=== PATIENT | male | born 1955 | race Caucasian/White ===

== ENCOUNTER 2017-04-02 10:36 | Emergency (ER) | payer OTHER ==
[~2017-04-02] VITALS: Ht 182.9 cm; Wt 59.0 kg
--- NOTE | ~2017-04-02 | EKG ---
[address] [address] ELECTROCARDIOGRAM REPORT Name: PALMIRA VARGAS ROBERTO CARLOS [facility] [id number] Admission: 04/02/17 Attend Phys: Discharge: 04/02/17 Date of : 59 Report #: [id number] THIS REPORT FOR: //name// [facility] ED Test Date: 2017-04-02 Test Time: 10:49:25 Pat Name: PALMIRA VARGAS Department: Room: Gender: Health Plan Manager: BIANKA : 1955 Requested By: Indu Tobar Order Number: [id number] MD: Jesus Henderson Measurements Intervals [place] Rate: 59 P: 68 NJ: 217 QRS: 32 QRSD: 85 T: 73 QT: 405 QTc: 402 Interpretive Statements Sinus rhythm Prolonged NJ interval No previous ECG available for comparison Electronically Signed On 04-03-2017 7:57:13 CDT by Jesus Henderson [email or web address] <ELECTRONICALLY SIGNED> By: Jesus Henderson MD, [facility] 04/03/17 0757 1049 1049 Jesus Henderson MD, FACC /EPI
[~2017-04-02 10:36] MED LIST: ACCUNEB SO1.25 MG/1 MISCELL; ALBUTEROL2.5 MG/0.5 INH; ALLERGY MEDICAT25 MG PO; ALLOPURINOL 10100 M1 PO; AMBIEN 5 MG TABL5 M1 PO; AMBIEN5 MG PO; ATIVAN0.5 MG PO; ATIVAN1 MG PO; BACTRIM DS TAB1 EACH PO; BENADRYL25 MG PO; CARDIZEM CD120 MG PO; CARDIZEM CD180 MG PO; CENTRUM SILVER1 EAC4 PO; CIPROFLOXACIN500 M1 PO; COLACE100 MG PO; CORDARONE200 MG PO; DIPHENHYDRAMINE25 M3 PO; DULCOLAX5 MG PO; DUONEB 2.5-0.5 M3 ML INH; FEVERALL650 MG RECTAL; FLEXERIL PO; FLOMAX0.4 MG PO; FLORANEX TABLE1 EACH PO; FOLIC ACID1 MG PO; GABAPENTIN 100100 MG PO; HYDROCODON-ACE1 EAC7 PO; HYDROCODON-ACE1 EACH PO; HYDROCODONE-AP1 EAC6 PO; HYDROXYZINE HCL25 M1 PO; K-PHOS #2 TABL1 EACH PO; LEVAQUIN 500 M500 M2 PO; LEVAQUIN 500 M500 M4 PO; LEVOTHYROXIN0.112 M1 PO; LOPRESSOR 12.12.5 MG PO; LOPRESSOR25 PO; MAG-AL PLUS SUS30 ML PO; MAGOX 400400 MG PO; MEDROLDOSEPACK PO; MEGESTROL400 MG/12; MELATONIN3 MG PO; MILK OF MA400 MG/5 M PO; MINOCIN100 MG PO; MIRALAX17 GM PO; MOBIC7.5 MG; NEBULIZER MISCELL; NORCO 5-325 TA1 EACH PO; NORVASC 5 MG TAB5 MG PO; NYSTATIN 1100000 U/M PO; ONDANSETRON HCL4 M2 IV PUSH; ONDANSETRON HCL4 M2 PO; PAXIL10 MG; PAXIL10 MG PO; PERCOCET 5-3251 EACH PO; PERCOCET PO; PHENERGAN 25 MG25 M1 IV PUSH; PHENERGAN 25 MG25 M1 PO; PREDNISONE 10 M10 MG PO; PREDNISONE 20 M20 MG PO; PREDNISONE10 MG PO; PROTONIX40 M1 PO; REMERON15 MG; SALINE NASAL SP30 ML NASAL; THERAGRAN-M PR1 EAC1 PO; THIAMINE HCL100 MG PO; TRAMADOL 50 MG50 MG PO; TRINATE TABLET1 TAB PO; TYLENOL325 MG PO; ULTRAM50 MG PO; UNICOMPLEX M TA1 TA1 PO; VANCOMYCIN HCL1 GM IV; VITAMIN B-1100 M1 PO
[2017-04-02] MEDS ORDERED: ALLOPURINOL 10100 M1 PO (10:42)
[2017-04-02] MEDS ORDERED: ASPIR 8181 MG PO (10:42)
[2017-04-02] MEDS ORDERED: FLONASE 0.05%50 MCG NASAL (10:42)
[2017-04-02] MEDS ORDERED: CELEXA20 MG PO (10:42)
[2017-04-02] MEDS ORDERED: MELATONIN5 M1 PO (10:43)
[2017-04-02] MEDS ORDERED: ZANTAC 150MG T150 MG PO (10:44)
[2017-04-02] MEDS ORDERED: HYDROXYZINE HCL50 MG PO (10:44)
[2017-04-02] MEDS ORDERED: FLOMAX0.4 MG PO (10:44)
[2017-04-02] MEDS ORDERED: PROAIR HFA8.5 GM INH (10:45)
[2017-04-02] MEDS ORDERED: SYMBICORT160 MCG/4. INH (10:46)
[2017-04-02] MEDS ORDERED: TRAMADOL 50 MG50 MG PO (10:46)
[2017-04-02 11:14] LABS: ABSOLUTE NEUTROPHILS 2.4 thou/uL (1.4-8.2); BASOPHILS 0.9 % (0.0-2.0); EOSINOPHILS 11.2 % (0.0-3.0); HEMATOCRIT 36.4 % (42.0-52.0); HEMOGLOBIN 12.2 gm/dL (14.0-18.0); LYMPHOCYTES 34.9 % (24.0-44.0); MCH 30.6 pg (26.0-34.0); MCHC 33.7 g/dL (28.0-37.0); MCV 90.9 fL (80.0-100.0); MONOCYTES 8.8 % (1.0-8.0); PLATELET COUNT 210 thou/uL (150-400); POLYS 44.2 % (36.0-66.0); RDW 15.3 % (10.5-14.5); WBC 5.5 thou/uL (4.0-11.0)
[2017-04-02 11:19] LABS: MANUAL DIFF NO
[2017-04-02] MEDS ORDERED: METOPROLOL TART25 MG PO (11:22)
[2017-04-02] MEDS ORDERED: OMEPRAZOLE 20 M20 M1 PO (11:23)
[2017-04-02] MEDS ORDERED: MAGOX 400400 MG PO (11:23)
[2017-04-02] MEDS ORDERED: LEVOTHYROXINE 0.15MG PO (11:23)
[2017-04-02] MEDS ORDERED: PERCOCET PO (11:24)
[2017-04-02 11:28] LABS: ANION GAP 4 mmol/L (7-16); BUN 14 mg/dL (7-18); CALCIUM 9.3 mg/dL (8.5-10.1); CHLORIDE 101 mmol/L (98-107); CO2 30 mmol/L (21-32); CREATININE 0.8 mg/dL (0.7-1.3); GLUCOSE 81 mg/dL (74-106); POTASSIUM 4.7 mmol/L (3.5-5.1); SODIUM 135 mmol/L (136-145)
[2017-04-02 11:33] LABS: ALBUMIN 3.4 g/dL (3.4-5.0); ALKALINE PHOSPHATASE 89 U/L (46-116); SGOT 13 U/L (15-37); SGPT 14 U/L (30-65); TOTAL BILIRUBIN 0.4 mg/dL (<0.1-1.0); TOTAL PROTEIN 7.5 g/dL (6.4-8.2); TROPONIN-I < 0.04 ng/mL (<0.04-0.07)
[2017-04-02 12:42] LABS: URINE BILIRUBIN NEGATIVE (Negative); URINE BLOOD NEGATIVE (Negative); URINE COLOR YELLOW; URINE GLUCOSE-RANDOM* NEGATIVE (Negative); URINE KETONES NEGATIVE (Negative); URINE NITRITE NEGATIVE (Negative); URINE PROTEIN (DIPSTICK) NEGATIVE (Negative); URINE UROBILINOGEN 0.2 E.U./dl (0.2-1.0)
== END 2017-04-02 13:08 | disposition home or self-care (01) ==
LOC: ER 10:36
PROVIDERS: Physician Assistant
DX: I95.1 Orthostatic hypotension (principal); R55 Syncope and collapse; J44.9 Chronic obstructive pulmonary disease, unspecified; I48.91 Unspecified atrial fibrillation; F41.9 Anxiety disorder, unspecified; I10 Essential (primary) hypertension; F17.210 Nicotine dependence, cigarettes, uncomplicated; Z86.14 Personal history of Methicillin resistant Staphylococcus aureus infection; Z88.0 Allergy status to penicillin

== ENCOUNTER 2017-06-22 16:19 | Inpatient (IN) | payer OTHER ==
[~2017-06-22] VITALS: Ht 182.9 cm; Wt 55.1 kg
--- NOTE | ~2017-06-22 | HC ---
[facility] [place] [address] CONSULTATION Name: PALMIRA VARGAS ROBERTO CARLOS Room #: 438-P [facility] IN M.R.#: [id number] Admission: 06/22/17 Attend Phys: Jason Groves Discharge: 06/25/17 Date of : 59 Report #: [id number] THIS REPORT FOR: //name// CC: Sixto Zayas MD DATE OF SERVICE: 06/23/2017 REASON FOR CONSULTATION: The patient is a 62-year-old male with chronic obstructive pulmonary disease, generalized weakness and weight loss. HISTORY OF PRESENT ILLNESS: The patient has a history of chronic obstructive pulmonary disease and has had respiratory failure with worsening shortness of breath. He had been in a long-term care center. He presented to [facility] [place] [place] with complaints of generalized weakness and shortness of breath. He reported he does have productive cough, fever and chills. He was admitted through the Emergency Room. He also reported he has lost about 40 pounds in the past 4 months or so. He was brought to [facility] ER from a nursing facility. LABORATORY STUDIES: Revealed unremarkable electrolytes, creatinine was 0.7, BUN of 11. AST and ALT were low, total bilirubin is 0.5. Alkaline phosphatase 107, albumin is 3.4 initially with hydration 1-3.3, lactic acid is 1.6. Alcohol is less than 10. Iron studies show low serum iron, low TIBC, low saturations. Hemoglobin is 12.3, white count of 5.3, MCV of 91, platelet count of 182,000. TSH is less than 0.007. Cortisol is pending. Blood cultures are pending. The patient also has chronic pain for which he takes narcotics. He had taken tramadol, but it did not work well, so he says he has gone back to [facility]. He usually takes about 4 per day. As far as his weight loss, he reports that his appetite has not been all that great. Up until recently, his taste sensation was very poor. He does have some nausea. He does feel full at times. He reports his bowel habits are regular. He has not had any rectal bleeding. He has had colonoscopies in the past at [place] and had colon polyps and was advised return in 3 years for followup. He says an upper endoscopy was attempted in the past, but apparently with some bleeding issue and it was altered. He does not recall he was told he had esophageal varices. The patient does have a history of alcohol abuse in the past. 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 He did this for 30 some years. Notes indicated there was some alcohol bottles in his room and he does admit he drank about a week ago when he went out in the past to [facility] [place] [place] [address] [place] [address] CONSULTATION Name: PALMIRA VARGAS ROBERTO CARLOS Room #: 438-P DIS IN M.R.#: [id number] Admission: 06/22/17 Attend Phys: Jason Groves Discharge: 06/25/17 Date of : 59 Report #: [id number] dinner with some friends. PAST MEDICAL HISTORY: Urinary tract infections, history of MRSA, COPD, atrial fibrillation, hypothyroidism, anxiety, history of pneumonia, high blood pressure, orthostatic hypotension. PAST SURGICAL HISTORY: Eye surgery, mastectomy. MEDICATIONS: Usual medicines, acetaminophen, albuterol, Zyloprim, ammonium lactate topically, aspirin, Symbicort, Celexa, Cardizem, Proscar, folic acid, gabapentin, hydroxyzine, levothyroxine, magnesium oxide, melatonin, metoprolol, multivitamin, nebulizer, omeprazole, Percocet, Rapaflo, thiamine, tramadol, Zolpidem. FAMILY HISTORY: No family history of colon cancer or ulcer disease. 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 REVIEW OF SYSTEMS: GENERAL: He reports he had some fever and chills, and he has been afebrile here in the hospital, he has lost 40 pounds he says since spring of this year. CENTRAL NERVOUS SYSTEM: Generalized weakness, no focal weakness, no seizures. ENT: No change in vision or hearing, sores in the mouth. PULMONARY: Some cough sometimes productive sputum, chronic lung disease, ____, tuberculosis, he has had pneumonias. CARDIOVASCULAR: No chest pain, chest tightness or palpitations. GASTROINTESTINAL: Some nausea, no vomiting, no diarrhea or rectal bleeding, he has had colon polyps. GENITOURINARY: Urinary retention. MUSCULOSKELETAL: Chronic back pain. SKIN: Without rashes. PSYCHIATRIC: Denied depression and anxiety. ENDOCRINE: Hypothyroidism. HEMATOLOGIC: No bleeding, bruising or malignancy. PHYSICAL EXAMINATION: RESPIRATORY: Well-developed, thin male in no acute distress. VITAL SIGNS: Blood pressure 147/83. HEENT: Icteric. Pupils equal and round. Oropharynx clear. NECK: Supple, without thyromegaly. CHEST: Clear. HEART: Irregular S1, S2. ABDOMEN: Normal bowel sounds, soft, nontender, without hepatosplenomegaly or masses. RECTAL: Not done. [facility] [place] [place] [address] [place] [address] CONSULTATION Name: PALMIRA VARGAS Room #: 438-P [facility] IN M.R.#: [id number] Admission: 06/22/17 Attend Phys: Jason Brown Yaneli Discharge: 06/25/17 Date of : 59 Report #: [id number] EXTREMITIES: Without cyanosis, clubbing or edema. He appears thin and wasted. ASSESSMENT AND PLAN: 1. Weight loss. 2. Early satiety. 3. Alcohol abuse. 4. Atrial fibrillation. 5. Hypothyroidism. 6. Chronic narcotic use. COMMENT: I suspect there are multiple issues here contributing to his weight loss including progressing his chronic lung disease, narcotics in terms of gastroparesis, early satiety may be playing an issue as well. His alcohol abuse maybe factors as well. It is not clear if he is still drinking. 1. Agree with CT scan, which has been ordered. 2. Follow up on pertinent labs. 3. Tentatively planned for upper endoscopy tomorrow, consider small bowel biopsy. <ELECTRONICALLY SIGNED> By: Rian Zayas MD 06/26/17 1523 1849 2152 Rian Zayas MD /nt
--- NOTE | ~2017-06-22 | H ---
[facility] [place] [address] HISTORY AND PHYSICAL Name: PALMIRA VARGAS ROBERTO CARLOS Room #: 438-P ADM IN M.R.#: [id number] Admission: 06/22/17 Attend Phys: Jason Groves Discharge: Date of : 59 Report #: [id number] THIS REPORT FOR: //name// CC: Sixto Groves DATE OF SERVICE: 06/22/2017 ATTENDING PHYSICIAN: Dr. Groves. PRIMARY CARE PHYSICIAN: Dr. Sixto Gomez. CHIEF COMPLAINT: Shortness of breath and generalized weakness. HISTORY OF PRESENT ILLNESS: The patient is a 62-year-old male who came into the ER, complaining of generalized weakness, chills and shortness of breath, that began about a week ago. The patient also reports subjective fever with chills and a productive cough for the last 3 days. This has been associated with some right side pain. He has had some swallowing problems in the past and he states that he sometimes feels like he is choking on his phlegm. He has been producing some greenish to yellow-colored sputum. Overall, he has been feeling very fatigued and tired over the last week. He denies any vomiting, but has been having dry heaves. Overall, he has had decreased appetite. He has been feeling shaky. He had a 40 pound weight loss, from 160 to 121 pounds, over the last 4 months. PAST MEDICAL HISTORY: Chronic alcoholism, UTIs, history of MRSA of the left foot, COPD, atrial fibrillation, anxiety, hypothyroidism, aspiration pneumonia, hypertension, orthostatic hypotension. PAST SURGICAL HISTORY: MRSA of the left foot wound, eye surgery, vasectomy. HOME MEDICATIONS: Reviewed per med reconciliation. ALLERGIES: PENICILLIN, UNKNOWN REACTION. SOCIAL HISTORY: The patient currently smokes a half pack of cigarettes per day. He has been smoking up to 3 packs per day, all through his life. Alcohol use, he does drink a few drinks per week. He smokes marijuana occasionally. He [place] [facility] [place] [facility] the last four months. Prior to that, [facility] had [facility] at [facility]. He normally ambulates with a walker. FAMILY HISTORY: His mother had heart disease. His father had some sort of heart problems. [address] [address] HISTORY AND PHYSICAL Name: PALMIRA VARGAS [facility] Room #: 438-P [facility] IN M.R.#: [id number] Admission: 06/22/17 Attend Phys: Jason Groves Discharge: Date of : 59 Report #: [id number] REVIEW OF SYSTEMS: Twelve-point review of systems was reviewed and otherwise negative unless stated in the HPI. PHYSICAL EXAMINATION: GENERAL: The patient is alert, cachectic appearing male, in no acute distress. VITAL SIGNS: Temperature 37.4, heart rate 82, respirations 20, blood pressure is 124/81, oxygen saturations is 97% on room air. HEENT: PERRLA. Sclerae are nonicteric. Oral mucosa is pink and moist. NECK: Supple, no JVD noted. CARDIOVASCULAR: Heart rate is irregular. No murmurs, rubs or gallops. RESPIRATORY: Breath sounds are slightly coarse throughout, with a few scattered expiratory wheezes. Breathing is nonlabored. He is able to speak in full sentences. ABDOMEN: Flat, nontender, nondistended, with positive sounds. VASCULAR: No edema noted. Pedal pulses are 2+ throughout. NEUROLOGIC: The patient is alert and oriented x 3. Speech is clear. He is answering questions appropriately and following commands. No focal neuro deficits noted. LABORATORY DATA AND DIAGNOSTICS: WBC 11.6, hemoglobin 13.4, platelets 204. Sodium 134, potassium 4.2, BUN 11, creatinine 0.7. LFTs are within normal limits. Alcohol level is less than 10. UA showed negative leukocyte esterase or wbc's. Chest x-ray showed air trapping with surgical changes in the left humerus. No change from prior study. There is no acute pneumonia or pneumothorax. ASSESSMENT AND PLAN: 1. Acute on chronic respiratory failure with possible pneumonia. The patient had received IV antibiotics which he will continue. Add IV steroids and breathing treatments. We will also further evaluate for any abnormalities on the CT of the chest since he does have a 40 pound weight loss in the last 4 months. Also follow blood cultures. 2. Chronic atrial fibrillation. He is currently rate controlled on diltiazem and metoprolol. He is not on any strong blood thinners. 3. Hypothyroidism. Continue home meds. 4. Possible alcohol abuse. The patient does have a history of alcoholism, but he has been at a rehab facility for the last 4 months. Prior to that, he had been at [place] [facility] [facility] reported tonight that they found some empty bottles of vodka in his room. His alcohol level is less than 10, and the patient adamantly denies that he has not been drinking at all while he has been in any sort of rehab or [place] [facility] care facilities. We will go ahead and discontinue the alcohol withdrawal protocol that was started by the ER, and continue to monitor. Continue with thiamine and multivitamins. 5. Deep venous thrombosis prophylaxis. Place sequential compression devices. [address] [address] HISTORY AND PHYSICAL Name: PALMIRA VARGAS ROBERTO CARLOS Room #: 438-P ADM IN M.R.#: [id number] Admission: 06/22/17 Attend Phys: Jason Groves Discharge: Date of : 59 Report #: [id number] We will continue to follow the patient closely throughout the hospitalization and make changes based on clinical status. <ELECTRONICALLY SIGNED> By: SUSY Colin 06/24/17 1920 1016 1249 SUSY Colin /nt
--- NOTE | ~2017-06-22 | P ---
[facility] [place] [address] PROCEDURE REPORT Name: PALMIRA VARGAS ROBERTO CARLOS Room #: 438-P ADM IN M.R.#: [id number] Admission: 06/22/17 Attend Phys: Jason Groves Discharge: Date of : 59 Report #: [id number] THIS REPORT FOR: //name// CC: Sixto Topete MD DATE OF SERVICE: 06/24/2017. PROCEDURE: Following is a diagnostic esophagogastroduodenoscopy. The patient of Dr. Horacio Gomez and Dr. Groves. INDICATION FOR PROCEDURE: This patient has mild anemia, weight loss of uncertain etiology. Possible alcoholic liver disease and the low iron saturation of 10%. The etiology of this is unclear, EGD is being performed today to try to sort out some of these issues. Informed consent for this procedure was obtained prior to the administration of any medication. The risks of the procedure which include bleeding, perforation, infection, complications of sedation and the possibility I could miss something have been explained to the patient and he has indicated his consent by signing. DESCRIPTION OF PROCEDURE: Propofol was slowly titrated before and during this procedure for patient comfort by the anesthesia service. The Dizzionn upper videoscope was introduced through the upper esophageal sphincter and advanced under direct visualization to the descending duodenum. Findings are noted on withdrawal of the scope. The duodenal mucosa in the second portion appears normal. There is a linear approximately 1 cm along white based nonbleeding ulceration in the postbulbar region of the duodenal bulb, there is some surrounding erythema of this ulceration as well. Other than that, the duodenal bulb shows some patchy erythema. Pylorus, normal mucosa, antrum, normal mucosa. Body, patchy gastritis is noted in the body, cardia and fundus of the stomach. No biopsies are taken as I am unsure of this patient's protime level. He does have a history of liver disease and I am not sure exactly how significant liver disease is either. Retroflex view did not reveal any hiatal hernia. The scope was withdrawn into the esophagus. The Z-line is appropriately located at the top of the gastric folds and appears normal. It should be noted the patient had no visible esophageal or gastric varices. The esophageal mucosa appears normal throughout its entirety. The scope was withdrawn. The patient went to the recovery area in stable condition. He tolerated the procedure well. Normal esophagus, the esophagus was normal, appears from the mucosal standpoint. I do not appreciate any narrowing of the esophagus during this exam, scope was withdrawn. The patient went to the recovery area in stable condition. He tolerated the procedure well. [address] [address] PROCEDURE REPORT Name: PALMIRA VARGAS ROBERTO CARLOS Room #: 438-P [facility] IN M.R.#: [id number] Admission: 06/22/17 Attend Phys: Jason Groves Discharge: Date of : 59 Report #: [id number] IMPRESSION: 1. Normal esophagus. 2. Diffuse mild proximal gastritis. 3. Postbulbar ulceration, nonbleeding. My recommendations were for him to be on proton pump inhibitors. I would recommend checking a stool for H. pylori antigen. As this was a post-bulbar ulcer would also recommend checking a fasting gastrin level and would replace potassium and magnesium. The patient stopped taking his thyroid medication. His TSH is 0.007 that was probably the right thing to do and I would continue to hold that. Would consider an outpatient colonoscopy as a screening test. Thank you very much once again for allowing me to participate in his care Dr. Gomez and Dr. Groves. <ELECTRONICALLY SIGNED> By: Maribel Lewis DO 06/24/17 1931 1143 1244 Maribel Lewis DO /nt
[~2017-06-22 16:19] MED LIST changes: +ASPIR 8181 MG PO; +CELEXA20 MG PO; +FLONASE 0.05%50 MCG NASAL; +HYDROXYZINE HCL50 MG PO; +LEVOTHYROXINE 0.15MG PO; +MELATONIN5 M1 PO; +METOPROLOL TART25 MG PO; +OMEPRAZOLE 20 M20 M1 PO; +PROAIR HFA8.5 GM INH; +SYMBICORT160 MCG/4. INH; +ZANTAC 150MG T150 MG PO
[2017-06-22 16:21] VITALS: BP 124/81
[2017-06-22 16:55] LABS: ABSOLUTE NEUTROPHILS 9.6 thou/uL (1.4-8.2); BASOPHILS 0.2 % (0.0-2.0); EOSINOPHILS 3.9 % (0.0-3.0); HEMATOCRIT 40.5 % (42.0-52.0); HEMOGLOBIN 13.4 gm/dL (14.0-18.0); LYMPHOCYTES 8.6 % (24.0-44.0); MANUAL DIFF NO; MCH 29.8 pg (26.0-34.0); MCHC 33.2 g/dL (28.0-37.0); MCV 89.8 fL (80.0-100.0); MONOCYTES 4.9 % (1.0-8.0); PLATELET COUNT 204 thou/uL (150-400); POLYS 82.4 % (36.0-66.0); RBC 4.51 mil/uL (4.50-6.00); RDW 16.8 % (10.5-14.5); WBC 11.6 thou/uL (4.0-11.0)
[2017-06-22 17:00] LABS: CALCIUM 9.3 mg/dL (8.5-10.1); CREATININE 0.7 mg/dL (0.7-1.3); POTASSIUM 4.2 mmol/L (3.5-5.1)
[2017-06-22 17:06] LABS: ALBUMIN 3.4 g/dL (3.4-5.0); DIRECT BILIRUBIN 0.3 mg/dL (<0.1-0.3); TOTAL BILIRUBIN 0.9 mg/dL (<0.1-1.0); TOTAL PROTEIN 7.9 g/dL (6.4-8.2)
[2017-06-22] MEDS ORDERED: VITAMIN B-1100 M1 PO (17:30)
[2017-06-22] MEDS ORDERED: RAPAFLO8 MG PO (17:30)
[2017-06-22] MEDS ORDERED: CARDIZEM30 MG PO (17:31)
[2017-06-22] MEDS ORDERED: FOLIC ACID1 MG PO (17:32)
[2017-06-22] MEDS ORDERED: AMBIEN 5 MG TABL5 M1 PO (17:33)
[2017-06-22] MEDS ORDERED: ACETAMINOPHEN650 M1 PO (17:33)
[2017-06-22] MEDS ORDERED: ALBUTEROL SULFAT2 MG INH (17:34)
[2017-06-22] MEDS ORDERED: CIPRO250 M1 PO (17:35)
[2017-06-22] MEDS ORDERED: PROSCAR 5MG TABL5 MG PO (17:35)
[2017-06-22] MEDS ORDERED: AMLACTIN1 EACH TP (17:36)
[2017-06-22] MEDS ORDERED: DOXYCYCLINE 10100 MG PO (18:25)
[2017-06-22] MEDS ORDERED: MEDROLDOSEPACK PO (18:25)
[2017-06-22 18:52] LABS: URINE BILIRUBIN 1+ (Negative); URINE BLOOD 2+ (Negative); URINE COLOR YELLOW; URINE GLUCOSE-RANDOM* NEGATIVE (Negative); URINE KETONES 1+ (Negative); URINE NITRITE NEGATIVE (Negative); URINE PROTEIN (DIPSTICK) NEGATIVE (Negative); URINE SPECIFIC GRAVITY 1.015 (1.003-1.035); URINE UROBILINOGEN 0.2 E.U./dl (0.2-1.0)
[2017-06-22 18:54] LABS: ICTOTEST (BILI CONFIRMATORY) Negative (Negative)
[2017-06-22 19:28] LABS: BACTERIA None Seen /HPF (None Seen); CASTS None Seen /LPF (None Seen); CRYSTALS None Seen /LPF (None Seen); SQUAMOUS None Seen /LPF (0-3); URINE RBC 3-10 Few /HPF (0-2); URINE WBC None Seen /HPF (0-5)
[2017-06-22 20:46] VITALS: BP 130/78
[2017-06-22 22:00] VITALS: BP 129/76
[2017-06-23 03:22] VITALS: BP 129/73
[2017-06-23 06:21] LABS: HEMATOCRIT 37.7 % (42.0-52.0); HEMOGLOBIN 12.3 gm/dL (14.0-18.0); MCH 29.8 pg (26.0-34.0); MCHC 32.7 g/dL (28.0-37.0); RBC 4.14 mil/uL (4.50-6.00); RDW 16.8 % (10.5-14.5); WBC 5.3 thou/uL (4.0-11.0)
[2017-06-23 06:43] LABS: CALCIUM 8.5 mg/dL (8.5-10.1); CREATININE 0.8 mg/dL (0.7-1.3); POTASSIUM 3.9 mmol/L (3.5-5.1); TOTAL BILIRUBIN 0.5 mg/dL (<0.1-1.0); TOTAL PROTEIN 6.8 g/dL (6.4-8.2)
[2017-06-23 09:01] VITALS: BP 137/75
[2017-06-23 11:28] LABS: % SATURATION 10 % (20-39); IRON 20 ug/dL (65-175); TIBC 209 ug/dL (250-450); UIBC 189 ug/dL
[2017-06-23 11:51] LABS: TSH < 0.007 uIU/mL (0.358-3.740)
[2017-06-23 16:25] VITALS: BP 147/83
[2017-06-23 20:09] VITALS: BP 162/78
[2017-06-24 04:12] VITALS: BP 120/71
[2017-06-24 06:46] LABS: ALBUMIN 3.1 g/dL (3.4-5.0); CALCIUM 8.3 mg/dL (8.5-10.1); CREATININE 0.6 mg/dL (0.7-1.3); MAGNESIUM 1.2 mg/dL (1.8-2.4); POTASSIUM 3.3 mmol/L (3.5-5.1); TOTAL BILIRUBIN 0.4 mg/dL (<0.1-1.0); TOTAL PROTEIN 6.8 g/dL (6.4-8.2)
[2017-06-24 08:44] VITALS: BP 130/68
[2017-06-24 16:54] VITALS: BP 107/59
[2017-06-24 20:40] VITALS: BP 119/72
[2017-06-25 05:19] VITALS: BP 150/81
[2017-06-25 07:29] LABS: PROTIME 10.2 Seconds (9.3-11.4)
[2017-06-25 08:00] VITALS: BP 130/76
[2017-06-25] MEDS ORDERED: LEVAQUIN 500 M500 M1 PO (10:31)
[2017-06-25] MEDS ORDERED: PANTOPRAZOLE SO40 M1 PO (10:32)
== END 2017-06-25 15:05 | DRG 383 ==
LOC: ER 16:19 → 4S 19:19 → EROBS 19:19 → 4S 21:36
PROVIDERS: Hospitalist; Internal Medicine Gastroenterology; Nurse Practitioner
PROC: 0DJ08ZZ Inspection of Upper Intestinal Tract, Via Natural or Artificial Opening Endoscopic (ICD-10-PCS; principal; 2017-06-24)
DX: K26.9 Duodenal ulcer, unspecified as acute or chronic, without hemorrhage or perforation (principal); E43 Unspecified severe protein-calorie malnutrition; J96.20 Acute and chronic respiratory failure, unspecified whether with hypoxia or hypercapnia; J44.1 Chronic obstructive pulmonary disease with (acute) exacerbation; Z68.1 Body mass index [BMI] 19.9 or less, adult; F41.9 Anxiety disorder, unspecified; K29.70 Gastritis, unspecified, without bleeding; F10.21 Alcohol dependence, in remission; I48.2 Chronic atrial fibrillation; F12.90 Cannabis use, unspecified, uncomplicated; E03.9 Hypothyroidism, unspecified; F17.210 Nicotine dependence, cigarettes, uncomplicated; Z79.01 Long term (current) use of anticoagulants; Z87.81 Personal history of (healed) traumatic fracture; Z86.14 Personal history of Methicillin resistant Staphylococcus aureus infection; Z87.440 Personal history of urinary (tract) infections; Z79.899 Other long term (current) drug therapy; Z88.0 Allergy status to penicillin; Z98.52 Vasectomy status; Z82.49 Family history of ischemic heart disease and other diseases of the circulatory system
CPT/HCPCS: 10100; 62110; 70005

== ENCOUNTER 2017-06-29 04:48 | Inpatient (IN) | payer OTHER | END 2017-07-05 14:56 | DRG 189 | LOC: ER 04:48 → EROBS 06:27 → 4W 07:39 | DX: J96.01 Acute respiratory failure with hypoxia (principal); J18.9 Pneumonia, unspecified organism; E43 Unspecified severe protein-calorie malnutrition; J44.1 Chronic obstructive pulmonary disease with (acute) exacerbation; J44.0 Chronic obstructive pulmonary disease with (acute) lower respiratory infection; Z68.1 Body mass index [BMI] 19.9 or less, adult; Y95 Nosocomial condition; I48.91 Unspecified atrial fibrillation; F41.9 Anxiety disorder, unspecified; N40.0 Benign prostatic hyperplasia without lower urinary tract symptoms; F17.210 Nicotine dependence, cigarettes, uncomplicated; Z79.01 Long term (current) use of anticoagulants; Z88.0 Allergy status to penicillin; Z89.429 Acquired absence of other toe(s), unspecified side; Z86.14 Personal history of Methicillin resistant Staphylococcus aureus infection; Z87.440 Personal history of urinary (tract) infections; Z87.81 Personal history of (healed) traumatic fracture ==

== ENCOUNTER 2021-01-24 09:55 | Inpatient (IN) | payer OTHER ==
[2021-01-24] VITALS (14 sets, daily range): BP systolic 81–141; BP diastolic 60–101
[~2021-01-24] VITALS: Ht 180.3 cm; Wt 63.7 kg
[~2021-01-24 09:55] MED LIST changes: +ACETAMINOPHEN325 M1 PO; +ACETAMINOPHEN650 M1 PO; +ACID CONTROL150 MG; +ALBUTEROL SULFAT2 MG INH; +AMITRIPTYLINE H25 M2 PO; +AMITRIPTYLINE H25 M4 PO; +AMLACTIN1 EACH TP; +ASA81BEC PO; +ASPERCREME1 EACH TOP; +ATIVAN1 M1 PO; +BACTRIM DS TAB1 EAC1 PO; +BENTYL 10 MG CA10 MG PO; +CARAFATE 1 GM TA1 G1 PO; +CARDIZEM30 MG PO; +CELEXA10 MG PO; +CIPRO250 M1 PO; +CLARITIN10 MG PO; +COLESTID1 GM PO; +DOXYCYCLINE 10100 MG PO; +FAMOTIDINE20 MG PO; +IPRAT-ALBUT 0.5-3 ML INH; +KEFLEX500 M1 PO; +LEVAQUIN 500 M500 M1 PO; +LEVAQUIN 500 M500 M3 PO; +LOPERAMIDE 2 MG2 M1 PO; +MAGNESIUM OXID200 MG PO; +MAGNESIUM400 MG PO; +MEROPENEM 1 GM V1 GM IVPB; +MUCINEX600 MG PO; +PANCRELIPASE PO; +PANTOPRAZOLE SO40 M1 PO; +PEPCID20 MG PO; +PHENAZOPYRIDIN100 M1 PO; +PHENAZOPYRIDIN200 M2 PO; +PREDNISONE 10 M10 M1 PO; +PRENATABS FA T1 EACH PO; +PROBIOTIC1 EAC1 PO; +PROSCAR 5MG TABL5 MG PO; +RAPAFLO8 MG PO; +REMERON15 MG PO; +ROBAXIN 750 MG750 MG PO; +XARELTO20 MG PO; +ZOFRAN ODT4 MG PO
[2021-01-24 10:29] LABS: URINE BILIRUBIN NEGATIVE (Negative); URINE BLOOD 3+ (Negative); URINE CLARITY CLEAR; URINE COLOR YELLOW; URINE GLUCOSE-RANDOM* NEGATIVE (Negative); URINE KETONES NEGATIVE (Negative); URINE LEUKOCYTES-REFLEX 2+ (Negative); URINE NITRITE-REFLEX NEGATIVE (Negative); URINE PROTEIN (DIPSTICK) 2+ (Negative)
[2021-01-24 10:35] LABS: ANION GAP 6 mmol/L (7-16); BUN 40 mg/dL (7-18); CALCIUM 8.8 mg/dL (8.5-10.1); CHLORIDE 94 mmol/L (98-107); CO2 33 mmol/L (21-32); CREATININE 1.1 mg/dL (0.7-1.3); GLUCOSE 138 mg/dL (74-106); POTASSIUM 4.5 mmol/L (3.5-5.1); SODIUM 133 mmol/L (136-145)
[2021-01-24 10:38] LABS: SQUAMOUS 0-3 Few /LPF (0-3); TRIPLE PHOSPHATE CRYSTALS 4-10 Moderate /LPF (None Seen)
[2021-01-24 10:39] LABS: URINE RBC >20 Many /HPF (0-2); URINE WBC-REFLEX 6-15 Few /HPF (0-5)
[2021-01-24 10:41] LABS: CASTS None Seen /LPF (None Seen)
[2021-01-24 10:44] LABS: ALBUMIN 2.2 g/dL (3.4-5.0); HEMATOCRIT 20.9 % (42.0-52.0); HEMOGLOBIN 6.8 gm/dL (14.0-18.0); MCHC 32.3 g/dL (28.0-37.0); MCV 80.4 fL (80.0-100.0); PLATELET COUNT 569 thou/uL (150-400); SGOT 29 U/L (15-37); SGPT 27 U/L (30-65); TOTAL BILIRUBIN 0.3 mg/dL (0.2-1.0); TOTAL PROTEIN 9.1 g/dL (6.4-8.2); TROPONIN-I <0.06 ng/mL (<0.06); WBC 16.9 thou/uL (4.0-11.0)
[2021-01-24 10:50] LABS: APTT 26.8 Seconds (24.5-32.8); D-DIMER 9.29 ug/mLFEU (0.19-0.50); INR 1.1; PROTIME 11.8 Seconds (9.3-11.4)
[2021-01-24 10:59] LABS: BE(vivo) 7.1 mmol/L (-2 to +3); HCO3 31.2 mmol/L (22.0-26.0); PCO2 42.3 mmHg (35.0-45.0); PO2 149.7 mmHg (80.0-100.0); pH 7.485 (7.360-7.450); sO2 99.1 % (92.0-98.0)
[2021-01-24] MEDS ORDERED: PROSCAR 5MG TABL5 M1 PER TUBE (11:08)
[2021-01-24] MEDS ORDERED: FLONASE 0.05%50 MCG NARES (11:09)
[2021-01-24] MEDS ORDERED: CLONAZEPAM 0.50.5 M1 PO (11:09)
[2021-01-24] MEDS ORDERED: MASOPHEN325 MG PER TUBE (11:10)
[2021-01-24] MEDS ORDERED: DILTIAZEM HCL30 MG PER TUBE (11:10)
[2021-01-24] MEDS ORDERED: LORAZEPAM 0.50.5 MG PER TUBE (11:11)
[2021-01-24] MEDS ORDERED: VENTOLIN HFA 1818 GM INH (11:13)
[2021-01-24] MEDS ORDERED: OXYCODONE HCL E10 MG PO (11:13)
[2021-01-24 11:14] LABS: ABSOLUTE NEUTROPHILS 13.5 thou/uL (1.4-8.2); ANISOCYTOSIS 1+; PLATELET ESTIMATE INCREASED
[2021-01-24] MEDS ORDERED: JEVITY 1.5 CAL237 ML PER TUBE (11:14)
[2021-01-24 11:15] LABS: HYPOCHROMASIA SLIGHT; MACROCYTES FEW; MICROCYTES 1+; POLYCHROMASIA SLIGHT
[2021-01-24] MEDS ORDERED: FAMOTIDINE 20 M20 MG PER TUBE (11:16)
[2021-01-24] MEDS ORDERED: REMERON15 M1 PER TUBE (11:17)
[2021-01-24] MEDS ORDERED: OXYCODONE HCL E10 MG PER TUBE (11:18)
--- NOTE | 2021-01-24 12:24 | EKG ---
[place] [address] [place] [address] ELECTROCARDIOGRAM REPORT Name: PALMIRA VARGAS Room #: REG [facility].Robert#: [id number] Admission: 01/24/21 Attend Phys: Discharge: Date of : 59 Report #: [id number] [facility] ED Test Date: 2021-01-24 Test Time: 10:04:20 Pat Name: PALMIRA VARGAS Department: Room: Gender: M Saw Straightener: LATOYA : 1955 Requested By: Darío Avalos Order Number: [id number] MD: Abran Blackman Measurements Intervals [place] Rate: 115 P: 68 ND: 155 QRS: -43 QRSD: 91 T: 67 QT: 322 QTc: 446 Interpretive Statements Sinus tachycardia, artifact Consider right atrial enlargement Abnormal R-wave progression, late transition Artifact in lead(s) II,III,aVL,aVF Compared to ECG 06/29/2017 04:51:54 Right ventricular hypertrophy no longer present Electronically Signed On 01-24-2021 12:24:04 CDT by Abran Blackman [email or web address] <ELECTRONICALLY SIGNED> By: Abran Blackman MD, [facility] 01/24/21 1224 1004 100 Abran Blackman MD, FAC /EPI
[2021-01-24 15:43] LABS: % SATURATION 15 % (20-39); IRON 26 ug/dL (65-175); TIBC 179 ug/dL (250-450)
[2021-01-24 15:45] LABS: OBSERVED RETIC COUNT 2.41 % (0.6-2.6)
--- NOTE | 2021-01-24 16:15 | 2DMMODE ---
[facility] [place] [address] 2 D/M-MODE ECHOCARDIOGRAM Name: PALMIRA VARGAS Room #: 240-P ADM IN M.R.#: [id number] Admission: 01/24/21 Attend Phys: Vince Doev MD Discharge: Date of : 59 Report #: [id number] THIS REPORT FOR: cc: GLORIA - Brandy family physician/PCP GLROIA - Brandy family physician/PCP Abran Blackman MD [facility] ~ APPROVED REPORT Study performed: 01/24/2021 15:12:33 EXAM: Comprehensive 2D, Doppler, and color-flow Echocardiogram Patient Location: ICU Room #: 240 Status: stat BSA: 1.81 HR: 87 bpm BP: 110/70 mmHg Rhythm: NSR Other Information Study Quality: Adequate Indications Pericardial effusion, hypotension, chest pain, Afib. Hx: Permanent trach, COPD 2D Dimensions RVDd: 33.98 mm IVSd: 12.00 (7-11mm) LVOT Diam: 23.00 (18-24mm) LVDd: 36.00 mm PWd: 11.00 (7-11mm) Ascending Ao: 40.00 (22-36mm) LVDs: 25.00 (25-40mm) Aortic Root: 42.00 mm Volumes Left Atrial Volume (Systole) Single Plane 4CH: 55.53 mL Single Plane 2CH: 43.61 mL LA ESV Index: 29.00 mL/m2 Aortic Valve AoV Peak Eric.: 0.96 m/s AO Peak Gr.: 3.70 mmHg LVOT Max P.61 mmHg LVOT Max V: 0.81 m/s RICK Vmax: 3.48 cm2 [facility] [address] [place] [address] 2 D/M-MODE ECHOCARDIOGRAM Name: PALMIRA VARGAS Room #: 240-P [facility] IN [facility]#: [id number] Admission: 01/24/21 Attend Phys: Vince Dove, Discharge: Date of : 59 Report #: [id number] Mitral Valve E/A Ratio: 0.7 MV Decel. Time: 162.53 ms MV E Max Eric.: 0.67 m/s MV A Eric.: 0.96 m/s MV PHT: 47.13 ms IVRT: 65.74 ms Pulmonary Valve PV Peak Eric.: 0.74 m/s PV Peak Gr.: 2.20 mmHg Tricuspid Valve TR Peak Eric.: 2.26 m/s RAP Estimate: 15.00 mmHg TR Peak Gr.: 20.41 mmHg PA Pressure: 35.00 mmHg Left Ventricle The left ventricle is normal size. There is normal LV segmental wall motion. There is normal left ventricular wall thickness. The left ventricular systolic function is normal. LVEF is 55-60%. Mild diastolic dysfunction is present (impaired relaxation pattern). Right Ventricle The right ventricle is normal size. The right ventricular systolic function is normal. Atria The left atrium size is normal. The right atrium size is normal. Aortic Valve The aortic valve is normal in structure. No aortic regurgitation is present. There is no aortic valvular stenosis. Mitral Valve The mitral valve is normal in structure. Trace mitral regurgitation. No evidence of mitral valve stenosis. Tricuspid Valve The tricuspid valve is normal in structure. Trace tricuspid regurgitation. Estimated PAP is 30-35mmHg. Pulmonic Valve The pulmonary valve is normal in structure. Trace pulmonic [facility] [address] [place] [address] 2 D/M-MODE ECHOCARDIOGRAM Name: PALMIRA VARGAS Room #: 240-P [facility] IN .R.#: [id number] Admission: 01/24/21 Attend Phys: Vince Dove, Discharge: Date of : 59 Report #: [id number] regurgitation. Great Vessels Aortic root is dilated at 4.2cm. Ascending aorta is dilated at 4.0cm. IVC is dilated and collapses <50% with inspiration. Pericardium Moderate circumferential pericardial effusion. <Conclusion> Normal left ventricular size/wall thickness Ejection fraction 60% Normal right ventricular size/function Normal atrial size Color-flow Doppler study was performed of the aortic/mitral/tricuspid/pulmonary valve Normal aortic/mitral valve structure and function Trace tricuspid valve insufficiency Pulmonary systolic pressure estimated 30-35 mmHg Mild aortic root enlargement estimated at 4.0 cm Moderate mostly posterior pericardial effusion, no tamponade physiology Normal IVC size and the response to respiration No tamponade physiology <ELECTRONICALLY SIGNED> By: Abran Blackman MD, FACC 01/24/211614 14 14 Abran Blackman MD, FACC /INF
--- NOTE | 2021-01-24 18:42 | NUR ---
PATIENT ADMITTED TO ICU FROM ED THIS AFTERNOON. CT CHEST/ABD/PEVLIS AND NUC MED SCAN DONE PRIOR TO ARRIVAL. PLACED ON MONTIOR. SINUS RHYTHM, HAS SHORT BURSTS OF TACHYCARDIA, BUT NORMAL RHYTHM. BP STABLE. 1 UNIT BLOOD TRANSFUSED. NEW IVS PLACED IN RIGHT FORARM AND LEFT UPPER ARM. IV ABX GIVEN. TURCIOS PATENT, FROM FACILITY. CHRONIC TRACH/PEG FROM [facility]. ISOLATION FOR R/O COVID. CONSULTS FOR PULMONARY AND CARDIOLOGY. STAT ECHO DONE FOR PERICARDIAL EFFUSION. ORAL AMIO GIVEN THRU PEG TUBE.
[2021-01-25] VITALS (24 sets, daily range): BP systolic 80–149; BP diastolic 47–85
[2021-01-25 00:20] LABS: HEMATOCRIT 21.1 % (42.0-52.0); HEMOGLOBIN 7.3 gm/dL (14.0-18.0); MCHC 34.6 g/dL (28.0-37.0); MCV 80.9 fL (80.0-100.0); RBC 2.61 mil/uL (4.50-6.00); RDW 16.5 % (10.5-14.5); WBC 12.8 thou/uL (4.0-11.0)
[2021-01-25 06:09] LABS: FOLIC ACID 22.3 ng/mL (8.6-58.9)
--- NOTE | 2021-01-25 06:21 | NUR ---
PATIENTS MENTAL STATUS HAS IMPORVED SIGNIFICANTLY AND IS ALERT AND ORIENTED X3. PATIENT DOES HAVE PERIODS OF FORGETFULNESS. PATIENTS PAIN IS NOW CONTROLLED. PATIENT HAS SIGNIFICANT ANXIETY R/T PAIN AND FORGETFULLNESS. THIS IS IMPROVED WITH ATIVAN. LUNG SOUNDS REMAIN COARSE WITH SIGNIFICANT SECRETIONS AROUND TRACH SITE. PT HAS ADEQUATE URINE OUTPUT BUT URINE CONTAINS LARGE AMOUTS OF MUCUS AND SEDIMENT. PT HAD FORMED BM THIS AM. PATIENT CALLED SISTER ON SPEAKER 01/24 AT APPROX 2230. THIS EASED PATIENTS ANXIETY SOME. SISTER REQUESTED THAT PATIENT SEE CHAPLIAN. PATIENT WAS TEARFUL AND AGREEABLE. WILL RELAY TO DAYSHIFT.
[2021-01-25 06:45] LABS: CALCIUM 8.4 mg/dL (8.5-10.1); CREATININE 1.2 mg/dL (0.7-1.3); POTASSIUM 4.2 mmol/L (3.5-5.1)
--- NOTE | 2021-01-25 13:56 | NUR ---
chart review. discussed during am rounds. pt resting in bed with eyes closed. has trach and peg, from [facility] skilled. cm called his sister jo ann, no answer, left message asking for call back. hay spoke with liagrady beasley at [facility], 11/16/20, no insurance, medicaid pending. will cont following as for dc needs. dcp back to [facility], when stable.
--- NOTE | 2021-01-25 19:14 | NUR ---
ASSUMED CARE OF PT 1500. PT COMMUNICATING W/THIS NURSE VIA MARKER BOARD WRITING, "I CANT BREATH, TOO TIGHT, I AM SCARED, WHERE WILL I GO NEXT?" PT VERY ANXIOUS. FRANCISCA STOVALL. RECOMMENDED SHCEDULE ANTIANXIETY REGIMEN. COLANIZIPAM STARTED. VSS. PROGRESSING IN PLAN OF CARE.
[2021-01-26] VITALS (24 sets, daily range): BP systolic 86–142; BP diastolic 52–83
[2021-01-26 04:53] LABS: HEMATOCRIT 23.3 % (42.0-52.0); HEMOGLOBIN 7.7 gm/dL (14.0-18.0); MCH 27.4 pg (26.0-34.0); MCHC 33.1 g/dL (28.0-37.0); MCV 82.7 fL (80.0-100.0); RBC 2.81 mil/uL (4.50-6.00); RDW 17.1 % (10.5-14.5); WBC 10.4 thou/uL (4.0-11.0)
[2021-01-26 05:08] LABS: CALCIUM 8.4 mg/dL (8.5-10.1); CREATININE 1.2 mg/dL (0.7-1.3); POTASSIUM 4.2 mmol/L (3.5-5.1)
--- NOTE | 2021-01-26 06:20 | NUR ---
ASSUMED CARE AT 1900. PT W/HIGH LEVELS ANXIETY THROUGHOUT NIGHT, GIVEN PRN ATIVAN TWICE; PT FORGETFUL ABOUT HIS PERSONAL HISTORY, DOESN'T RECALL WHY/WHEN HE WAS TRACHED, GETS AGITATED THAT HE CAN'T SPEAK. REFUSED BATH, ONLY ALLOWED FACE TO BE CLEANED AND PERICARE. FREQ C/O PAIN IN LEFT SHOULDER/BACK AND CRAMPING PAIN ON TOPS OF FEET, MULTIPLE PRN PAIN MEDS GIVEN FOR LIMITED RELIEF. INCREASED TUBE FEED RATE TO 40 ML/HR THIS AM PT WAS NO LONGER C/O NAUSEA. NO OTHER CONCERNS, PROGRESSING TOWARDS GOALS.
[2021-01-26 12:06] LABS: HEMOGLOBIN 7.3 g/dL (13.0-17.7)
[2021-01-27] VITALS (18 sets, daily range): BP systolic 69–127; BP diastolic 41–82
--- NOTE | 2021-01-27 12:39 | NUR ---
PT ON VENT WITH CHRONIC TRACH. VENT SETTINGS UNCHANGED. PT WITH LOW GRADE FEVER, ADEQUATE UOP, NO BM, TOLERATING TUBE FEED AT GOAL. PEG TUBE SITE SKIN IS EXCORIATED. PT TRANSFERED TO ROOM 249 AT 1230, REPORT GIVEN TO SUSANA MORALES. PT AND FAMILY HAVE BEEN UPDATED AND EDUCATED ON PT CONDITION AND POC. PT SLOWLY PROGRESSING TOWARDS POC.
--- NOTE | 2021-01-27 18:02 | NUR ---
ASSUMED CARE OF PT AT 1245, PT IS VERY ANXIOUS AND USES HIS CALL LIGHT FREUQENTLY TO BE SUCTIONED. HE IS MEETING GOALS AND READY TO MOVE TO CCU.
[2021-01-28] VITALS (16 sets, daily range): BP systolic 73–106; BP diastolic 41–68
[2021-01-28 03:02] LABS: CALCIUM 8.4 mg/dL (8.5-10.1); CREATININE 1.4 mg/dL (0.7-1.3); POTASSIUM 4.7 mmol/L (3.5-5.1)
--- NOTE | 2021-01-28 06:23 | NUR ---
PT IS A/0X4 WITH HIGH ANXIETY. FREQUENT REQUEST FOR ATIVAN. PT ON TRACH THAT REQUIRES FREQUENT SUCTION. BP SOFT OVER EVENING, WHILE IN SAME BP RANGE FROM PREVIOUS SHIFTS READINGS. TURCIOS IN PLACE WITH GOOD OUTPUT. TUBE FEEDING IN PLACE. ORDERED NEW [place] TUBING FROM IT IS NOT IN STOCK ON UNIT. PT CAN USE CALL LIGHT TO CALL FOR NEEDS.
--- NOTE | 2021-01-28 08:50 | NUR ---
cm notified that he is out of network with insurance. cm sent message to hospitalist to see if he is medically stable to dc back to [facility] or if he will need to be transferred to an in network hospital?. cm provided verbal updated to [facility] liaison. updates to be sent to [facility].
--- NOTE | 2021-01-28 11:33 | NUR ---
ALERT AND ORIENTED AND ABLE TO MAKE NEEDS KNOWN. VITALS STABLE, HYPOTENSIVE THIS A.M AND REPORTED TO CARDIOLOGISTS WHEN HE ROUNDED AND NO NEW ORDERS. NS BOLUS PER DR. ESPINOSA. PATIENT KEEPS CALLING FOR PAIN AND ANXIETY MEDICATION. TOLERATING TF PER PEG. TOLERATING VENT SETTINGS PER TRACH WITH MOD SECRETIONS. CASE MANAGEMENT WORKING ON DC BACK TO [facility].
[2021-01-28] MEDS ORDERED: LEVOFLOXACIN750 MG PO (12:25)
[2021-01-28] MEDS ORDERED: CLONAZEPAM 0.50.5 M1 PER TUBE (12:27)
[2021-01-28] MEDS ORDERED: NYAMYC15 GM TOP (12:28)
--- NOTE | 2021-01-28 12:42 | NUR ---
FAXED CLINICAL UPDATE TO [facility] RECEIVED CONFIRMATIN AND SPOKE WITH DEVON IN ADM.
--- NOTE | 2021-01-28 15:02 | NUR ---
DISCHARGE ORDERS RECEIVED, REPORT CALLED TO CARMEN GRIMM AT [facility] AT 1440. PATIENT SCHEDULED FOR EMS P/U BTN [phone].
--- NOTE | 2021-01-28 15:26 | NUR ---
PATIENT PICKED UP BY EMS AT 1520.
== END 2021-01-28 15:20 | DRG 870 ==
LOC: ER 09:55 → ICU 12:49 → EROBS 12:49 → ICU 14:12
PROVIDERS: Emergency Medicine; Internal Medicine Hematology & Oncology; Internal Medicine Pulmonary Disease; Nurse Practitioner Adult Health; ADMIT Internal Medicine; ATTEND Internal Medicine
PROC: 5A1955Z Respiratory Ventilation, Greater than 96 Consecutive Hours (ICD-10-PCS; principal; 2021-01-24)
PROC: 30233N1 Transfusion of Nonautologous Red Blood Cells into Peripheral Vein, Percutaneous Approach (ICD-10-PCS; 2021-01-24)
DX: A41.9 Sepsis, unspecified organism (principal); J96.21 Acute and chronic respiratory failure with hypoxia; N39.0 Urinary tract infection, site not specified; E46 Unspecified protein-calorie malnutrition; I48.20 Chronic atrial fibrillation, unspecified; I31.3 Pericardial effusion (noninflammatory); E87.1 Hypo-osmolality and hyponatremia; Z68.1 Body mass index [BMI] 19.9 or less, adult; J90 Pleural effusion, not elsewhere classified; D64.9 Anemia, unspecified; J44.9 Chronic obstructive pulmonary disease, unspecified; K21.9 Gastro-esophageal reflux disease without esophagitis; F10.21 Alcohol dependence, in remission; F41.9 Anxiety disorder, unspecified; M19.90 Unspecified osteoarthritis, unspecified site; I95.9 Hypotension, unspecified; N40.0 Benign prostatic hyperplasia without lower urinary tract symptoms; Z20.822 Contact with and (suspected) exposure to COVID-19; Z79.01 Long term (current) use of anticoagulants; Z79.899 Other long term (current) drug therapy; Z88.0 Allergy status to penicillin; Z88.8 Allergy status to other drugs, medicaments and biological substances; Z93.0 Tracheostomy status
CPT/HCPCS: 10078; 10203; 85076